=== PATIENT | male | born 1995 | race Caucasian/White ===

== ENCOUNTER 2018-06-23 18:05 | Emergency (ER) | payer OTHER ==
[2018-06-23] MEDS ORDERED: OXYCODONE-ACETAMINOPHEN 5-325 MG TABLET PO ONE (18:16)
--- NOTE | 2018-06-23 18:38 | ER Document Report ---
ED General - General Chief Complaint: Flu Symptoms Stated Complaint: FLU SYMPTOMS Time Seen by Provider: 06/23/18 18:11 Notes: 23-year-old male here with complaints of ear pain sore throat body aches fevers chills nausea vomiting diarrhea ongoing for the past 24 hours. He has tried some [id number]-tpgklct medications including DayQuil. Eating drinking urinating defecating per usual. No known sick contacts. Immunizations up-to-date except influenza. TRAVEL OUTSIDE OF THE [place] IN LAST 30 DAYS: No - Related Data Allergies/Adverse Reactions: No Known Allergies Allergy (Unverified 06/23/18 18:09) Past Medical History - Social History Smoking Status: Unknown if Ever Smoked Family History: Reviewed & Not Pertinent Patient has suicidal ideation: No Patient has homicidal ideation: No Renal/ Medical History: Denies: Hx Peritoneal Dialysis Review of Systems - Review of Systems Notes: See history of present illness for pertinent positive review of systems; otherwise all review of systems have been reviewed and are negative Physical Exam - Vital signs Vitals: Temp Pulse Resp BP Pulse Ox 100.0 F 106 H 16 126/72 H 97 06/23/18 18:16 06/23/18 18:16 06/23/18 18:16 06/23/18 18:16 06/23/18 18:16 - Notes Notes: PHYSICAL EXAMINATION: GENERAL: Well-appearing and in no acute distress. HEAD: Atraumatic, normocephalic. EYES: Pupils equal round and reactive to light, extraocular movements intact, sclera anicteric, conjunctiva are normal. ENT: nares patent, oropharynx mild erythema without tonsillar swelling exudates. Moist mucous membranes. Normal TMs bilaterally NECK: Normal range of motion, supple without lymphadenopathy LUNGS: CTAB and equal. No wheezes rales or rhonchi. HEART: Minimally tachycardic (low 100s) rate and regular rhythm without murmurs ABDOMEN: Soft, no tenderness. No facial grimacing/wincing upon palpation. No guarding, no rebound. EXTREMITIES: Normal range of motion, no pitting edema. No cyanosis. NEUROLOGICAL: Cranial nerves grossly intact. Normal sensory/motor exams. PSYCH: Normal mood, normal affect. SKIN: Warm, Dry, normal turgor, no rashes or lesions noted Course - Re-evaluation Re-evalutation: 06/23/18 18:37 MEDICAL DECISION MAKING: Concern for upper respiratory infection, most likely viral I will give the patient a prescription for meloxicam and Tessalon Perles Instructed patient on fever control with Tylenol and/or (if applicable) Motrin Also discussed keeping hydrated with water or Gatorade/Pedialyte Instructed follow-up PCP next day or few Patient understands and agrees to the plan of care - Vital Signs Vital signs: Temp Pulse Resp BP Pulse Ox 100.0 F 106 H 16 126/72 H 97 06/23/18 18:16 06/23/18 18:16 06/23/18 18:16 06/23/18 18:16 06/23/18 18:16 Discharge - Discharge Clinical Impression: Acute URI Condition: Good Disposition: HOME, SELF-CARE Additional Instructions: You were seen in the emergency department at [facility]. You likely have an upper respiratory infection, most likely viral. Use Motrin and/or Tylenol for fever control. You may use saline nasal spray for stuffy nose. Stay hydrated. Please followup with your primary physician in the next few days for further management/evaluation. Please return to the emergency department for worsening of symptoms or any symptom that you deem to be concerning or life-threatening. Thank you for allowing us to be part of your care. This is your school/work note for your Emergency Department evaluation today. Prescriptions: Benzonatate [Tessalon Perles 100 mg Capsule] 100 mg PO Q8HP PRN #40 capsule PRN Reason: Meloxicam [Mobic] 7.5 mg PO DAILYP PRN #10 tablet PRN Reason:
== END 2018-06-23 18:39 | disposition home or self-care (01) ==
LOC: ER 18:05
DX: J06.9 Acute upper respiratory infection, unspecified (principal)
CPT/HCPCS: 99283